=== PATIENT | female | born 1945 | race Two or more races ===

== ENCOUNTER 2020-03-12 07:00 | Day surgery (SDC) | payer OTHER | END 2020-03-12 10:45 | disposition home or self-care (01) | LOC: AMB-ENDOS 07:00 | PROVIDERS: ATTEND Surgery | DX: K62.89 Other specified diseases of anus and rectum (principal); K64.8 Other hemorrhoids ==

== ENCOUNTER 2020-04-01 14:00 | Outpatient (CLI) | payer OTHER | END 2020-04-01 14:13 | disposition home or self-care (01) | LOC: MAMO-SONO 14:00 | PROVIDERS: ATTEND Obstetrics & Gynecology Gynecology | DX: Z12.31 Encounter for screening mammogram for malignant neoplasm of breast (principal); N64.4 Mastodynia ==